=== PATIENT | female | born 1960 | race Two or more races ===

== ENCOUNTER 2023-09-27 13:23 | Emergency (ER) | payer OTHER ==
[~2023-09-27] VITALS: Ht 167.6 cm; Wt 99.8 kg
[2023-09-27] MEDS ORDERED: PROAIR RESPICL90 MCG (13:59)
[2023-09-27] MEDS ORDERED: OMEPRAZOLE MAGN20 MG (13:59)
[2023-09-27] MEDS ORDERED: MILLIPRED5 MG (14:00)
[2023-09-27] MEDS ORDERED: PEPCID AC20 MG (14:00)
== END 2023-09-27 20:30 | disposition home or self-care (01) ==
LOC: ER 13:23
DX: M79.675 Pain in left toe(s) (principal); Z88.0 Allergy status to penicillin; Z88.2 Allergy status to sulfonamides; Z88.6 Allergy status to analgesic agent